=== PATIENT | male | born 1970 | race Caucasian/White ===

== ENCOUNTER 2019-02-23 13:31 | Emergency (ER) | payer OTHER ==
[2019-02-23] MEDS: IBUPROFEN 600 MG TAB PO (14:12)
== END 2019-02-23 15:57 | disposition home or self-care (01) ==
LOC: FTE 13:31
DX: M25.561 Pain in right knee (principal); I10 Essential (primary) hypertension
CPT/HCPCS: 73562; 99283-25

== ENCOUNTER 2019-04-14 19:53 | Observation (INO) | payer OTHER ==
[2019-04-14] MEDS: VANCOMYCIN 1 GM (PMX) 250 ML IVPB (21:45)
[2019-04-14] MEDS: DIPHTH/TET/ACEL PERTUSS (ADULT) 0.5 ML VIAL IM* (21:46)
[2019-04-14] MEDS: SOD CHLORIDE 0.9% 1,000 ML IV (21:47)
[2019-04-14] MEDS: LIDOCAINE 1% (MDV) 20 ML INJ SC (21:47)
[2019-04-14] MEDS: morphine 4 MG/ML VIAL IV (21:48)
[2019-04-14] MEDS: MEROPENEM 1 GM/50ML(PMX) 50 ML IVPB (21:59)
[2019-04-14 22:05] LABS: ADD MAN DIFF? NO
[2019-04-14 22:09] LABS: WHITE BLOOD COUNT 8.7 10^3/ul (4.8-10.8)
[2019-04-14 22:09] LABS: BASOPHIL # 0.1 10^3/ul (0.0-0.1); BASOPHILS % 0.7 % (0.0-2.0); EOSINOPHILS # 0.1 10^3/ul (0.0-0.5); EOSINOPHILS % 0.9 % (0.0-7.0); HEMATOCRIT 43.2 % (42.0-52.0); HEMOGLOBIN 14.6 g/dl (14.0-18.0); LYMPHOCYTES # 2.3 10^3/ul (0.8-2.9); LYMPHOCYTES % 26.2 % (15.0-51.0); MEAN CORPUSCULAR HEMOGLOBIN 32.2 pg (29.0-33.0); MEAN CORPUSCULAR HGB CONC 33.8 g/dl (32.0-37.0); MEAN CORPUSCULAR VOLUME 95.4 fl (82.0-101.0); MEAN PLATELET VOLUME 9.6 fl (7.4-10.4); MONOCYTE # 0.8 10^3/ul (0.3-0.9); MONOCYTES % 9.3 % (0.0-11.0); NEUTROPHIL # 5.4 10^3/ul (1.6-7.5); NEUTROPHILS % 62.6 % (39.0-77.0); PLATELET COUNT 314 10^3/UL (140-415); RED BLOOD COUNT 4.53 10^6/ul (4.70-6.10); RED CELL DISTRIBUTION WIDTH 11.8 % (11.5-14.5)
[2019-04-14 22:28] LABS: ALANINE AMINOTRANSFERASE 96 IU/L (13-69); ALBUMIN 4.4 g/dl (3.3-4.9); ALBUMIN/GLOBULIN RATIO 1.18; ALKALINE PHOSPHATASE 83 IU/L (42-121); ANION GAP 10 (5-13); ASPARTATE AMINO TRANSFERASE 66 IU/L (15-46); BILIRUBIN,INDIRECT 0.4 mg/dl (0-1.1); BILIRUBIN,TOTAL 0.4 mg/dl (0.2-1.3); BLOOD UREA NITROGEN 10 mg/dl (7-20); C-REACTIVE PROTEIN 1.5 mg/dl (0.0-0.9); CALCIUM 9.3 mg/dl (8.4-10.2); CARBON DIOXIDE 28 mmol/L (21-31); CHLORIDE 103 mmol/L (97-110); CREATININE 0.86 mg/dl (0.61-1.24); Estimated GFR > 60 mL/min (>60); GLUCOSE 86 mg/dl (70-220); POTASSIUM 3.5 mmol/L (3.5-5.1); SODIUM 141 mmol/L (135-144); TOTAL PROTEIN 8.1 g/dl (6.1-8.1)
[2019-04-14] MEDS ORDERED: HYDROCODONE/APAP (5/325) TAB PO (22:30)
[2019-04-14] MEDS ORDERED: ACETAMINOPHEN 325 MG TAB PO (22:30)
[2019-04-14] MEDS ORDERED: BISACODYL (EC) 5 MG TAB PO (22:30)
[2019-04-14] MEDS ORDERED: NACL 0.9% 3 ML SYG IV (22:30)
[2019-04-14] MEDS ORDERED: DOCUSATE SODIUM 100 MG CAP PO (22:30)
[2019-04-14 22:31] LABS: PARTIAL THROMBOPLASTIN TIME 28.7 Sec (23.0-35.0)
[2019-04-14] MEDS: VANCOMYCIN IV PER PHARMACY XX (22:44)
[2019-04-14 23:12] LABS: ERYTHROCYTE SEDIMENTATION RATE 18 mm/Hr (0-20)
[2019-04-15] MEDS: VANCOMYCIN 1.25 GM/NS 250 ML 250 ML IVPB ×2 (06:01→17:28)
[2019-04-15] MEDS: KETOROLAC 15 MG INJ IV ×4 (06:01→23:40)
[2019-04-15] MEDS: AMLODIPINE 10 MG TAB PO (08:25)
[2019-04-15] MEDS: ATORVASTATIN 10 MG TAB PO (20:23)
[2019-04-16 05:27] LABS: ADD MAN DIFF? NO
[2019-04-16 05:38] LABS: WHITE BLOOD COUNT 7.4 10^3/ul (4.8-10.8)
[2019-04-16 05:38] LABS: BASOPHIL # 0.1 10^3/ul (0.0-0.1); BASOPHILS % 0.8 % (0.0-2.0); EOSINOPHILS # 0.1 10^3/ul (0.0-0.5); EOSINOPHILS % 1.1 % (0.0-7.0); HEMATOCRIT 42.5 % (42.0-52.0); HEMOGLOBIN 14.3 g/dl (14.0-18.0); LYMPHOCYTES # 1.9 10^3/ul (0.8-2.9); LYMPHOCYTES % 25.3 % (15.0-51.0); MEAN CORPUSCULAR HEMOGLOBIN 32.1 pg (29.0-33.0); MEAN CORPUSCULAR HGB CONC 33.6 g/dl (32.0-37.0); MEAN CORPUSCULAR VOLUME 95.5 fl (82.0-101.0); MEAN PLATELET VOLUME 9.8 fl (7.4-10.4); MONOCYTE # 0.7 10^3/ul (0.3-0.9); MONOCYTES % 10.1 % (0.0-11.0); NEUTROPHIL # 4.6 10^3/ul (1.6-7.5); NEUTROPHILS % 62.4 % (39.0-77.0); PLATELET COUNT 297 10^3/UL (140-415); RED BLOOD COUNT 4.45 10^6/ul (4.70-6.10); RED CELL DISTRIBUTION WIDTH 11.8 % (11.5-14.5)
[2019-04-16 05:53] LABS: VANCOMYCIN,TROUGH 6.3 ug/ml (10.0-20.0)
[2019-04-16] MEDS: KETOROLAC 15 MG INJ IV ×2 (06:09→11:51)
[2019-04-16] MEDS: VANCOMYCIN 1.25 GM/NS 250 ML 250 ML IVPB ×2 (06:09→14:00)
[2019-04-16 06:17] LABS: CREATININE 0.76 mg/dl (0.61-1.24)
[2019-04-16 06:17] LABS: BLOOD UREA NITROGEN 13 mg/dl (7-20)
[2019-04-16] MEDS: AMLODIPINE 10 MG TAB PO (08:22)
[2019-04-16] MEDS: ENOXAPARIN 40 MG/0.4 ML SYG SC (08:24)
[2019-04-16] MEDS: THIAMINE 100 MG TAB PO (14:49)
== END 2019-04-16 16:10 | disposition home or self-care (01) ==
LOC: MS3 22:14 → FTE 19:53 → MS3 22:14
DX: S80.02XA Contusion of left knee, initial encounter (principal); L03.116 Cellulitis of left lower limb; I10 Essential (primary) hypertension; E78.5 Hyperlipidemia, unspecified; V18.0XXA Pedal cycle driver injured in noncollision transport accident in nontraffic accident, initial encounter; Y93.55 Activity, bike riding; Y92.85 Railroad track as the place of occurrence of the external cause
CPT/HCPCS: 73100; 73100-52; 73120-52; 73562; 73590; 73721; 80053; 80202; 82565; 84520; 85025; 85335; 85651; 86140; 90471; 90715; 93971; 96365; 96375; 99285-25